=== PATIENT | male | born 1995 | race Caucasian/White ===

== ENCOUNTER → 2016-10-19 | Outpatient (CLI) | payer OTHER ==
[~2016-10-19] MED LIST: ADDERALL XR 3030 MG PO; ESCITALOPRAM OX20 MG PO; NOHOMEMEDICATIONS; VITAMIN D1000 UNI1 PO; XANAX 0.25 MG0.25 MG PO
== END ==
LOC: RAD 08:51
DX: E66.01 Morbid (severe) obesity due to excess calories (principal); Z68.42 Body mass index [BMI] 45.0-49.9, adult; Z98.84 Bariatric surgery status

== ENCOUNTER → 2016-10-22 | Outpatient (CLI) | payer OTHER ==
[~2016-10-22] VITALS: Ht 177.8 cm; Wt 143.3 kg
--- NOTE | ~2016-10-22 | O ---
[facility] [place] [address] OPERATIVE REPORT Name: MARJORIEAUGUSTUSKya ROSEN Room #: REG [facility]#: [id number] Admission: 10/22/16 Attend Phys: Kat Wilson MD, Discharge: Date of : [birth year] Report #: [id number] THIS REPORT FOR: //name// CC: MARIA FERNANDA physician/PCP Kat Wilson DATE OF SERVICE: 10/22/2016 DATE OF SERVICE: 10/22/2016. PREOPERATIVE DIAGNOSES: 1. Gastroesophageal reflux disease. 2. Morbid obesity with a BMI of 46.05. 3. History of laparoscopic sleeve gastrectomy done in [facility] 5 years ago. 4. Lumbago. 5. Asthma. 6. Hyperlipidemia. 7. Depression. POSTOPERATIVE DIAGNOSES 1. Gastroesophageal reflux disease. 2. Morbid obesity with a BMI of 46.05. 3. History of laparoscopic sleeve gastrectomy done in [facility] 5 years ago. 4. Lumbago. 5. Asthma. 6. Hyperlipidemia. 7. Depression. 8. Esophagitis. 9. Extremely generously sized sleeved stomach. PROCEDURE PERFORMED: Thorough esophagogastroduodenoscopy (EGD). SURGEON: Kat Wilson M.D. ANESTHESIA: Monitored anesthesia care. ESTIMATED BLOOD LOSS: None. COMPLICATIONS: None. SPECIMENS: None. INDICATIONS: The patient is a 21-year-old morbidly obese, male who underwent a laparoscopic sleeve gastrectomy in [facility] done back in the 2011. The patient has had very little weight loss since his procedure and has been complaining of reflux disease and as such presented to me for evaluation. [facility] [address] [place] [address] OPERATIVE REPORT Name: AIDAN AMADOR JESSIKA [id number] Admission: 10/22/16 Attend Phys: Kat Wilson MD, Discharge: Date of : [birth year] Report #: [id number] I did obtain an upper GI swallow, which showed a generously sized sleeve measuring 2.5 cm in transverse diameter; however, with complaints of his gastroesophageal reflux disease, indication was for EGD today. DESCRIPTION OF PROCEDURE: After explaining the risks, benefits and alternatives of the procedure with the patient in detail in the preoperative holding area and obtaining written consent, the patient was brought to the endoscopy suite, supine on his hospital bed. After conducting a thorough timeout procedure verifying correct patient and procedure, the patient was given monitored anesthesia care. Once adequate anesthesia was obtained, his SCDs were hooked up to pneumatic compression device and the [facility] upper endoscope was used to intubate the oropharynx with ease. This was advanced down into the esophagus and through the gastroesophageal junction where the sleeve stomach was entered. The scope was advanced past the pylorus to the second portion of duodenum and slow careful withdrawal of the EGD scope showed no evidence of duodenitis, gastritis, mass lesions or ulcerations. There was evidence of a subtle esophagitis in the distal esophagus, but no evidence of Baron's changes or ulceration was seen. Within the gastric lumen, which was extremely generously sized, a retroflexion view of the scope was obtained showing no evidence of a hiatal hernia. The scope was straightened out within the gastric lumen and the stomach was fully desufflated and the scope was removed and passed off the field. At the end of the procedure, all instrument, needle and sponge counts were correct. The patient tolerated the procedure without incident. He was awakened in the endoscopy suite and transitioned to the recovery room in stable condition with no apparent complications. <ELECTRONICALLY SIGNED> By: Kat Wilson MD, FACS 10/23/16 1330 0850 0908 Kat Wilson MD, FACS /nt
== END ==
LOC: GI 07:24
DX: K21.0 Gastro-esophageal reflux disease with esophagitis (principal); E66.01 Morbid (severe) obesity due to excess calories; Z68.42 Body mass index [BMI] 45.0-49.9, adult; J45.909 Unspecified asthma, uncomplicated; E78.5 Hyperlipidemia, unspecified; F32.9 Major depressive disorder, single episode, unspecified; F90.9 Attention-deficit hyperactivity disorder, unspecified type; G47.33 Obstructive sleep apnea (adult) (pediatric)
CPT/HCPCS: 62110; 62900

== ENCOUNTER → 2017-08-26 | Outpatient (CLI) | payer OTHER ==
[~2017-08-26] MED LIST changes: +COMPAZINE10 MG PO; +HYDROCODONE-ACE15 ML PO; +ZOFRAN ODT4 MG DISSOLVE
== END ==
LOC: RAD 12:14
DX: R05 Cough (principal)

== ENCOUNTER 2017-08-27 05:22 | Inpatient (IN) | payer OTHER ==
[2017-08-27] VITALS (12 sets, daily range): BP systolic 105–141; BP diastolic 66–114
[~2017-08-27] VITALS: Ht 177.8 cm; Wt 150.1 kg
--- NOTE | ~2017-08-27 | S ---
[facility] [place] [address] SURGICAL PATH RPT PROCEDURE Name: AIDAN DUQUE Room #: 418-P DIS IN M.R.#: [id number] Admission: 08/27/17 Date of : 89 Discharge: 08/28/17 Report #: [id number] Path Case #: [id number] PATHOLOGY REPORT COLLECTION DATE: 08/27/2017 RECEIVED DATE: 08/27/2017 SUBMITTING PHYS: Dr. Kat Wilson OTHER PHYS: Dr. Emiliano Vega SPECIMEN(S) RECEIVED: A.Gastric sleeve * * * * * * * * * * * * FINAL DIAGNOSIS: "Gastric sleeve", partial gastrectomy: - Gastric mucosa, submucosa and muscular wall with mild mucosal reactive changes. (CLW:raf; 08/30/2017) PATHOLOGIST: Malika Sarkar M.D. REPORT ELECTRONICALLY SIGNED BY: Malika Sarkar M.D. DATE/TIME: 08/30/2017 15:07 * * * * * * * * * * * * GROSS PATHOLOGY: Received in formalin labeled "Aidan Duque, gastric sleeve" and consists of a stapled crescent shaped portion of stomach measuring 17.0 x 2.0 x 1.9 cm. The serosa is glistening and pink. There are no mucosal lesions identified. Pole Inspector sections are submitted A1-A3. CLINICAL HISTORY: Morbid obesity INITIAL CPT CODE(S): A; 24464 Professional services performed by [facility] at [place] [address] [place] [address] Technical services performed by [facility] at [address] [place] [address], [facility] [address], [place] [address]. [facility] [address] [place] [address] SURGICAL PATH RPT PROCEDURE Name: AIDAN DUQUE Room #: 418-P [facility] IN M.R.#: [id number] Admission: 08/27/17 Date of : 93 Discharge: 08/28/17 Report #: [id number] Path Case #: [id number] [address] PHONE: [phone] DIRECTOR: Devon Wang M.D. * * * END OF REPORT * * *
--- NOTE | ~2017-08-27 | O ---
[facility] [place] [address] OPERATIVE REPORT Name: MARJORIEAIDAN JESSIKA Room #: 418-P [facility] IN M.R.#: [id number] Admission: 08/27/17 Attend Phys: Kat Wilson MD, Discharge: Date of : 93 Report #: [id number] THIS REPORT FOR: //name// CC: MARIA FERNANDA physician/PCP Kat Wilson DATE OF SERVICE: 08/27/2017 PREOPERATIVE DIAGNOSES: 1. Morbid obesity with a BMI of 47.5. 2. History of sleeve gastrectomy in [place]. 3. Hyperlipidemia. 4. Pure hypercholesterolemia. 5. Snoring disorder. 6. Lumbago. 7. Chronic fatigue. POSTOPERATIVE DIAGNOSES: 1. Morbid obesity with a BMI of 47.5. 2. History of sleeve gastrectomy in [place]. 3. Hyperlipidemia. 4. Pure hypercholesterolemia. 5. Snoring disorder. 6. Lumbago. 7. Chronic fatigue. 8. Intra-abdominal adhesions. 9. 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 PROCEDURES PERFORMED: 1. Laparoscopic reduction and repair of a type 3 paraesophageal hernia with cruroplasty. 2. Laparoscopic repeat sleeve gastrectomy. 3. Laparoscopic lysis of adhesions. 4. Thorough esophagogastroduodenoscopy (EGD). SURGEON: Kat Wilson MD FURRIER DESIGNER: Emiliano Vega MD ANESTHESIA: General endotracheal anesthesia. ESTIMATED BLOOD LOSS: Minimal (less than 5 mL). COMPLICATIONS: None appreciated. [facility] [address] [place] [address] OPERATIVE REPORT Name: AIDAN AMADOR JESSIKA Room #: 418-P [facility] IN ..#: [id number] Admission: 08/27/17 Attend Phys: Kat Wilson MD, Discharge: Date of : 93 Report #: [id number] SPECIMENS: Small recurrent gastric sleeve specimen to pathology. INDICATIONS: The patient is a 21-year-old morbidly obese, Middle-Eastern male, who has undergone a laparoscopic sleeve gastrectomy in [facility] 6 years ago. The patient had initially okay weight loss. However, as of late, has regained some weight and has only sustained approximately 20-30 pounds in overall weight loss through his postoperative course. The patient has no feeling of restriction and has normal bowel movements. We did proceed with a preoperative EGD, which showed generously sized sleeved stomach and he has undergone thorough counseling by multiple providers, including his primary care physician, paddock judge and a psychologist who have all cleared him for bariatric surgery as well as indicating it is medically necessary for weight loss and long-term improvement in his overall health status. The patient has participated in an aggressive diet and exercise plans under my direction for the past 7 months with no statistically significant weight loss thus far. As such, indication was for the above-mentioned procedures today with intraoperative findings of a type 3 paraesophageal hernia with the top one-third of his prior sleeved stomach within the distal mediastinum, requiring reduction and repair, in addition to the repeat sleeve gastrectomy due to generously sized stomach. DESCRIPTION OF PROCEDURE: After explaining the risks, benefits and alternatives of the procedure with the patient in detail in the preoperative holding area and obtaining written consent, the patient was brought to the operating room and placed supine on the operating room table. After conducting a thorough timeout procedure, verifying correct patient and procedure, the patient was given general endotracheal anesthesia. Once adequate anesthesia was obtained, his SCDs were hooked up to pneumatic compression device and he was given a preoperative dose of antibiotics in line with SCIP protocol. The patient was also given Lovenox 1 hour prior to the operating room to prevent venous thromboembolism. The patient's abdomen was now prepped and draped in standard surgical sterile fashion after positioning him in the low lithotomy position with his legs in the Yellofin stirrups. I began the procedure by performing an EGD once again. The [employer] upper endoscope was used to intubate the oropharynx, was traversed down into the esophagus with ease. This was advanced past the pylorus and the second portion of the duodenum where slow careful withdrawal showed no evidence of duodenitis, gastritis, esophagitis, mass lesions or ulcerations. I was able to easily retroflex within the gastric lumen once again and at this juncture under general anesthesia I saw questionable evidence of a small hiatal hernia. The scope was straightened out with its tip at the level of pylorus where the stomach was desufflated and the scope was taped into position. I sterilely entered the operative field after scrubbing. 5 mL of 0.5% Marcaine with epinephrine were used to anesthetize the skin in the right mid abdomen, 5 cm cephalad to the umbilicus and 5 cm to the patient's right. A #15 bladed scalpel was used to create a 1.5 cm transverse skin incision at this location. A 15 mm Visiport was placed over 0 degree 5 mm laparoscope and was introduced through this incision site. Once intra-abdominal [facility] [address] [place] [address] OPERATIVE REPORT Name: AIDAN AMADOR Room #: 418-P [facility] IN [place]#: [id number] Admission: 08/27/17 Attend Phys: Kat Wilson MD, Discharge: Date of : 93 Report #: [id number] placement was verified visually, the obturator for the trocar and laparoscope were both removed and the abdomen was insufflated to 15 mmHg using carbon dioxide gas. The laparoscope was changed to a 5-mm 30-degree laparoscope, which was reintroduced through this trocar. The entire abdomen was evaluated to ensure no injury upon entry. I now placed 3 additional working trocars in the left mid abdomen. All were 5 mm ports. The first was placed 2 cm cephalad to the umbilicus and 2 cm to the patient's left, one was placed 5 cm lateral to that, and the final one was placed in the extreme left lateral flank. All 3 additional ports were placed under direct vision. After anesthetizing the skin at each location with 5 mL of 0.5% Marcaine with epinephrine, I created small skin nicks using a #15 bladed scalpel. The laparoscope was now removed, changed to the 5 mm port just to the left the patient's umbilicus and he was placed in steep reverse Trendelenburg position. There were adhesions in the upper abdomen that necessitated lysis at this juncture and as such, I proceeded to take these down with a combination of Harmonic scalpel and EndoShears dissection. Any time, we were near stomach or duodenum, cold dissection was undertaken with scissors to prevent injury from thermal spread. Once we had taken all these adhesions down from the underside of the liver, I was able place a Daniel liver retractor in subxiphoid location. This was done after anesthetizing the skin at the appropriate location with 5 mL of 0.5% Marcaine with epinephrine and I created a small skin geno at that location. The Daniel was delivered through this defect where it was positioned up under the left lobe of the liver and was held up against the posterior aspect of the anterior abdominal wall. This was fixed into position using the Iron Glass Blowing Lathe Operator device to stabilize it. We now had complete access to the stomach and hiatal regions and I saw that the superior one-third of the sleeved stomach was contained within the distal mediastinum in a moderate sized hiatal hernia. As we were going to be performing a repeat sleeve gastrectomy due to the generous sized sleeved stomach, we started our dissection after identifying our landmarks. The vein of Soria was identified overlying the pylorus. I measured 4 cm proximal to this location and began taking down all adhesions from the greater curvature of the stomach as well as a few short gastric arteries as it appears his prior sleeve was started at approximately 8 cm from the pylorus. This dissection was undertaken with Harmonic scalpel for hemostasis and carried all along the greater curvature of the stomach up to the left katelyn. Once we arrived on the left katelyn, I dissected anteriorly up the left katelyn. We now applied gentle manual traction on the stomach in an inferior direction. I proceeded to dissect the entire hiatal region using Harmonic scalpel, staying well away from the stomach and esophageal tissues. The stomach was then reflected the left lateral aspect where I took down the pars flaccida to identify the base of the right katelyn. I dissected anteriorly up the right katelyn with the Harmonic scalpel for hemostasis. I was able to easily create a window in the retroesophageal space from the patient's right to left side and pulled the Coyanosa drain through this. I now upsized the 5 mm port in the left midclavicular location to a 12 mm port under direct vision after extending the incision slightly with a 15 bladed scalpel. This was placed under direct vision as well. This would allow for the [facility] [address] [place] [address] OPERATIVE REPORT Name: AIDAN AMADOR Room #: 418-P [facility] IN [place].#: [id number] Admission: 08/27/17 Attend Phys: Kat Wilson MD, Discharge: Date of : 93 Report #: [id number] EndoStitch device to appropriately repair the hiatal defect from the type 3 paraesophageal hernia. The Coyanosa drain was retracted inferior and anterior and I proceeded to continue dissecting in the mediastinum. I carried this extensive mediastinal dissection as far cephalad as possible, which I think in completion, we had 2 cm of intraabdominal esophagus that was not under traction to attempt to recoil back up in the mediastinum. The patient had a 2.5 cm hiatal defect identified. I now proceeded to repair this using several sutures of 0 Surgidac on the EndoStitch device, creating the cruroplasty posteriorly to recreate the slit valve aspect of the lower esophageal sphincter complex. This was brought together to where it was snugged, but not tight to the esophagus, especially while not on traction as we did not want undue tightness at the level of the hiatus. Once this was repaired, photodocumentation was taken and provided to the patient and the permanent medical record. Now that we had the entire stomach in the abdomen without traction to recoil back up in the mediastinum, we started the sleeve gastrectomy portion of the procedure. The [place] 60 mm stapler with a black load using Falk's Maria T-Strip buttressing material placed over was entered into the abdomen through the 15 mm port. This first firing started at the location 4 cm proximal to the pylorus and fired right along, but not extremely tight to the scope, so as not to cause stricturing, especially at the incisura. An additional firing of another black load, again utilizing Falk's Maria T-Strip buttressing material was carried out following the scope as a 34-Georgian bougie. Four additional firings, all of green loads, all utilizing Falk's Maria T-Strip buttressing material was carried out following the scope as a bougie, all the way up the left katelyn until the stomach was completely transected. There were a few areas of ooze on the staple line and as such, a laparoscopic clip tax manager public was used for maintaining hemostasis along the staple line as well as the proximal and distal aspects of the staple line. Now that we had complete hemostasis, we evaluated the staple line. There was no twisting to the sleeve specimen whatsoever and the staple line appeared to be seated nicely along the entirety of the new greater curvature of the stomach. There was no bleeding. The resection specimen was removed via the 15 mm incision and I proceeded to place fascial closing sutures of 0 PDS suture on a Tra-Cherelle suture passer device at both the 15 mm and 12 mm fascial incisions. Neither of these were tied down at this juncture, but they were tagged with hemostats and trocars were placed under direct vision. I now sprayed 10 mL of Tisseel using the Doormanlospray device all along the greater curvature of the stomach to help seal the staple line closed. Once this was dry, normal saline was instilled into the upper abdomen and the EGD scope was reactivated and slowly withdrawn, evaluating the staple line from the inside with gentle insufflation. There was no bleeding internally whatsoever and the sleeve was smooth without impingement. Gentle insufflation within the gastric lumen allowed for a leak test of which we saw no evidence of bubbling in the abdomen as the stomach was held under the normal saline. The EGD scope was used to desufflate the stomach, it was removed via the oropharynx, passed off the field and I sterilely reentered the operative field once again. All normal saline was gently suctioned out of the abdomen and it ran clear throughout. One [facility] [address] [place] [address] OPERATIVE REPORT Name: AIDAN AMADOR Room #: 418-P [facility] IN .R.#: [id number] Admission: 08/27/17 Attend Phys: Kat Wilson MD, Discharge: Date of : 93 Report #: [id number] final evaluation of the intra-abdominal domain showed no further evidence of pathology. The Daniel liver retractor was removed under direct vision. The liver was healthy and uninjured. The 15 mm and 12 mm trocars were removed under direct vision and I tied each of the sutures down under direct vision to ensure I did not catch a loop of bowel or omentum in my suture repair. The left lateral trocar was removed under direct vision as well for the same reason. The abdomen was now fully desufflated. The final remaining trocars removed under direct vision as well. A 4-0 Monocryl was used in a standard subcuticular fashion for all skin incisions and Dermabond glue was applied to all skin wounds. The corner of the resection specimen that had been removed was trimmed away and 400 mL were instilled into the resection specimen. At the end of the procedure, all instrument, needle and sponge counts were correct. The patient tolerated the procedure without incident, was awakened in the operating room and transitioned to the recovery room in stable condition with no apparent complications. <ELECTRONICALLY SIGNED> By: Kat Wilson MD, FACS 08/27/17 1503 1048 1210 Kat Wilson MD, FACS /nt
[~2017-08-27 05:22] MED LIST changes: -COMPAZINE10 MG PO; -HYDROCODONE-ACE15 ML PO; -ZOFRAN ODT4 MG DISSOLVE
[2017-08-27] MEDS ORDERED: HYDROCODONE-ACE15 ML PO (10:06)
[2017-08-27] MEDS ORDERED: ZOFRAN ODT4 MG DISSOLVE (10:06)
[2017-08-28 03:54] VITALS: BP 123/55
[2017-08-28 05:13] LABS: HEMATOCRIT 41.1 % (42.0-52.0); HEMOGLOBIN 13.7 gm/dL (14.0-18.0); MCH 30.7 pg (26.0-34.0); MCHC 33.4 g/dL (28.0-37.0); RBC 4.47 mil/uL (4.50-6.00); RDW 12.6 % (10.5-14.5); WBC 9.2 thou/uL (4.0-11.0)
[2017-08-28 05:21] LABS: CALCIUM 8.9 mg/dL (8.5-10.1); CREATININE 0.8 mg/dL (0.7-1.3); POTASSIUM 4.6 mmol/L (3.5-5.1)
[2017-08-28] MEDS ORDERED: COMPAZINE10 MG PO (11:42)
[2017-08-28 11:55] VITALS: BP 123/55
== END 2017-08-28 13:08 | disposition home or self-care (01) | DRG 621 ==
LOC: OR → TBA 05:22 → OR 05:22 → TBA 05:23 → 4E 10:05 → OR 10:05 → 4E 08-28 13:08
PROVIDERS: Surgery
PROC: 0DJ08ZZ Inspection of Upper Intestinal Tract, Via Natural or Artificial Opening Endoscopic (ICD-10-PCS; principal; 2017-08-27)
PROC: 0DV64CZ Restriction of Stomach with Extraluminal Device, Percutaneous Endoscopic Approach (ICD-10-PCS; principal; 2017-08-27)
PROC: 0DB64Z3 Excision of Stomach, Percutaneous Endoscopic Approach, Vertical (ICD-10-PCS; principal; 2017-08-27)
DX: E66.01 Morbid (severe) obesity due to excess calories (principal); E78.5 Hyperlipidemia, unspecified; E78.00 Pure hypercholesterolemia, unspecified; R06.83 Snoring; K44.9 Diaphragmatic hernia without obstruction or gangrene; K21.9 Gastro-esophageal reflux disease without esophagitis; Z68.42 Body mass index [BMI] 45.0-49.9, adult
CPT/HCPCS: 10783; 50010; 50101; 50222; 50249; 50386; 50555; 50558; 50739; 50740; 50962; 51297; 51437; 52182; 52265; 53307; 53311; 54022; 54118; 55245; 55326; 56462; 56525; 56526; 56531; 57092; 62110; 62900; 64031; 70005

== ENCOUNTER 2019-01-15 13:51 | Emergency (ER) | payer OTHER ==
[~2019-01-15] VITALS: Ht 177.8 cm; Wt 127.0 kg
[2019-01-15 13:51] VITALS: BP 104/63
[~2019-01-15 13:51] MED LIST changes: +COMPAZINE10 MG PO; +HYDROCODONE-ACE15 ML PO; +ZOFRAN ODT4 MG DISSOLVE
[2019-01-15] MEDS ORDERED: IBUPROFEN 600600 M1 PO (14:46)
== END 2019-01-15 14:50 | disposition home or self-care (01) ==
LOC: ER 13:51
DX: M79.601 Pain in right arm (principal); M79.602 Pain in left arm; V89.0XXA Person injured in unspecified motor-vehicle accident, nontraffic, initial encounter; Y93.89 Activity, other specified; Y92.89 Other specified places as the place of occurrence of the external cause; Y99.8 Other external cause status; J45.909 Unspecified asthma, uncomplicated; F32.9 Major depressive disorder, single episode, unspecified

== ENCOUNTER 2019-07-02 12:32 | Emergency (ER) | payer OTHER ==
[~2019-07-02] VITALS: Ht 177.8 cm; Wt 117.9 kg
[~2019-07-02 12:32] MED LIST changes: +IBUPROFEN 600600 M1 PO
[2019-07-02 13:40] LABS: ABSOLUTE NEUTROPHILS 5.1 thou/uL (1.4-8.2); BASOPHILS 0.3 % (0.0-2.0); EOSINOPHILS 0.7 % (0.0-3.0); HEMATOCRIT 47.7 % (42.0-52.0); HEMOGLOBIN 15.9 gm/dL (14.0-18.0); LYMPHOCYTES 13.9 % (24.0-44.0); MCH 31.5 pg (26.0-34.0); MCHC 33.4 g/dL (28.0-37.0); MCV 94.1 fL (80.0-100.0); MONOCYTES 6.2 % (1.0-8.0); PLATELET COUNT 244 thou/uL (150-400); POLYS 78.9 % (36.0-66.0); RBC 5.07 mil/uL (4.50-6.00); RDW 12.8 % (10.5-14.5); WBC 6.5 thou/uL (4.0-11.0)
[2019-07-02 13:58] LABS: CALCIUM 10.2 mg/dL (8.5-10.1); CREATININE 0.8 mg/dL (0.7-1.3); POTASSIUM 5.1 mmol/L (3.5-5.1)
[2019-07-02 14:02] LABS: ALBUMIN 4.7 g/dL (3.4-5.0); TOTAL BILIRUBIN 1.2 mg/dL (<0.1-1.0); TOTAL PROTEIN 8.3 g/dL (6.4-8.2)
[2019-07-02 16:58] VITALS: BP 122/62
--- NOTE | 2019-07-03 10:13 | EKG ---
[place] [address] [place] [address] ELECTROCARDIOGRAM REPORT Name: AIDAN AMADOR [id number] Admission: 07/02/19 Attend Phys: Discharge: 07/02/19 Date of : 93 Report #: [id number] THIS REPORT FOR: //name// [facility] ED Test Date: 2019-07-02 Test Time: 13:42:41 Pat Name: AIDAN AMADOR Department: Room: Gender: M Land Development Project Manager: : 1995 Requested By: Laura Goodman Order Number: [id number] MD: Eliceo Rebollar Measurements Intervals [place] Rate: 70 P: 15 CO: 136 QRS: -1 QRSD: 107 T: 21 QT: 405 QTc: 437 Interpretive Statements Sinus rhythm Poor R wave progression No previous ECG available for comparison Electronically Signed On 07-03-2019 10:12:30 CERTIFIED DRUG COUNSELOR by Eliceo Rebollar [email or web address] <ELECTRONICALLY SIGNED> By: Eliceo Rebollar MD, [facility] 07/03/19 1012 1342 1342 Eliceo Rebollar MD, FACC /EPI
== END 2019-07-02 17:55 | disposition home or self-care (01) ==
LOC: ER 12:32
PROVIDERS: Physician Assistant
DX: R42 Dizziness and giddiness (principal); R11.0 Nausea; R10.13 Epigastric pain; J45.909 Unspecified asthma, uncomplicated; F32.9 Major depressive disorder, single episode, unspecified; F90.9 Attention-deficit hyperactivity disorder, unspecified type; Z86.2 Personal history of diseases of the blood and blood-forming organs and certain disorders involving the immune mechanism

== ENCOUNTER 2019-12-15 13:58 | Emergency (ER) | payer OTHER ==
[~2019-12-15] VITALS: Ht 177.8 cm; Wt 104.3 kg
[2019-12-15 15:00] LABS: URINE BILIRUBIN NEGATIVE (Negative); URINE BLOOD 2+ (Negative); URINE CLARITY CLEAR; URINE COLOR YELLOW; URINE GLUCOSE-RANDOM* NEGATIVE (Negative); URINE KETONES NEGATIVE (Negative); URINE LEUKOCYTES-REFLEX NEGATIVE (Negative); URINE NITRITE-REFLEX NEGATIVE (Negative); URINE PROTEIN (DIPSTICK) NEGATIVE (Negative); URINE SPECIFIC GRAVITY 1.025 (1.005-1.035); URINE UROBILINOGEN 0.2 E.U./dl (0.2-1.0)
[2019-12-15 15:09] LABS: ABSOLUTE NEUTROPHILS 5.7 thou/uL (1.4-8.2); BASOPHILS 0.5 % (0.0-2.0); EOSINOPHILS 1.4 % (0.0-3.0); HEMATOCRIT 43.3 % (42.0-52.0); LYMPHOCYTES 20.9 % (24.0-44.0); MCHC 34.5 g/dL (28.0-37.0); MCV 95.5 fL (80.0-100.0); MONOCYTES 9.6 % (1.0-8.0); PLATELET COUNT 269 thou/uL (150-400); POLYS 67.6 % (36.0-66.0); RBC 4.54 mil/uL (4.50-6.00); RDW 12.6 % (10.5-14.5); WBC 8.4 thou/uL (4.0-11.0)
[2019-12-15 15:14] LABS: CALCIUM 8.5 mg/dL (8.5-10.1); CREATININE 0.8 mg/dL (0.7-1.3); POTASSIUM 4.5 mmol/L (3.5-5.1)
[2019-12-15 15:21] LABS: ALBUMIN 3.8 g/dL (3.4-5.0); TOTAL BILIRUBIN 0.7 mg/dL (0.2-1.0); TOTAL PROTEIN 6.7 g/dL (6.4-8.2)
[2019-12-15 15:24] LABS: CASTS None Seen /LPF (None Seen); CRYSTALS None Seen /LPF (None Seen); SQUAMOUS 4-10 Moderate /LPF (0-3)
[2019-12-15 15:25] LABS: BACTERIA-REFLEX 1-9 Few /HPF (None Seen); URINE RBC 3-10 Few /HPF (0-2); URINE WBC-REFLEX 0-5 Rare /HPF (0-5)
[2019-12-15] MEDS ORDERED: PRILOSEC OTC20 MG PO (16:12)
[2019-12-15 17:00] VITALS: BP 112/70
== END 2019-12-15 17:17 | disposition home or self-care (01) ==
LOC: ER 13:58
PROVIDERS: Physician Assistant
DX: R10.13 Epigastric pain (principal); R51 Headache; R31.9 Hematuria, unspecified; F32.9 Major depressive disorder, single episode, unspecified; F90.9 Attention-deficit hyperactivity disorder, unspecified type; J45.909 Unspecified asthma, uncomplicated; Z90.3 Acquired absence of stomach [part of]; Z79.899 Other long term (current) drug therapy